=== PATIENT | female | born 1985 | race Hispanic/Latino ===

== ENCOUNTER 2018-03-23 18:00 | Emergency (ER) | payer OTHER, BC ==
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
[2018-03-23 19:12] VITALS: BMI 25.1
[2018-03-23 19:20] VITALS: RESP 18; TEMP 98.2
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
[2018-03-23 21:47] VITALS: BP 121/63; PULSE 79; O2SAT 99
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
== END 2018-03-23 22:17 | disposition home or self-care (01) ==
LOC: ED 18:00
DX: S13.4XXA Sprain of ligaments of cervical spine, initial encounter (principal); V59.9XXA Occupant (driver) (passenger) of pick-up truck or van injured in unspecified traffic accident, initial encounter; Y92.411 Interstate highway as the place of occurrence of the external cause
CPT/HCPCS: 72125; 81025; 96372; 99284; J1885